=== PATIENT | female | born 1990 | race Two or more races ===

== ENCOUNTER 2023-11-11 17:31 | Emergency (ER) | payer OTHER ==
[~2023-11-11] VITALS: Ht 167.6 cm; Wt 61.2 kg
[2023-11-11] MEDS ORDERED: KETOROLAC TROMETHAMINE 60 MG VIAL IM ONE ×2 (19:45→20:30)
[2023-11-11] MEDS ORDERED: DICLOFENAC SODI50 MG PO (20:57)
== END 2023-11-11 21:19 ==
LOC: ER 17:33
DX: H18.823 Corneal disorder due to contact lens, bilateral (principal)